=== PATIENT | female | born 1950 | race Caucasian/White ===

== ENCOUNTER 2021-04-12 16:53 | Emergency (ER) | payer MEDICARE ==
[~2021-04-12] VITALS: Ht 165.1 cm; Wt 69.0 kg
[2021-04-12 17:41] LABS: BASOPHILS ABSOLUTE AUTO 0.04 K/mm3 (0.00-0.23); BASOPHILS PERCENT AUTO 1 % (0-2); EOSINOPHILS ABSOLUTE AUTO 0.15 K/mm3 (0.00-0.68); EOSINOPHILS PERCENT AUTO 2 % (0-6); Hematocrit 42.1 % (33.0-51.0); Hemoglobin 13.8 g/dL (11.5-16.0); IMMATURE GRAN ABSOLUTE AUTO 0.02 K/mm3 (0.00-0.10); IMMATURE GRAN PERCENT AUTO 0 % (0-1); LYMPHOCYTES ABSOLUTE AUTO 1.31 K/mm3 (0.84-5.20); LYMPHOCYTES PERCENT AUTO 17 % (21-46); MONOCYTES ABSOLUTE AUTO 0.64 K/mm3 (0.16-1.47); MONOCYTES PERCENT AUTO 8 % (4-13); Mean Corpuscular HGB 31.5 pg (26.0-34.0); Mean Corpuscular HGB Conc 32.8 g/dL (31.5-36.5); Mean Corpuscular Volume 96 fL (80-100); Mean Platelet Volume 10.6 fL (9.1-12.4); NEUTROPHILS ABSOLUTE AUTO 5.78 K/mm3 (1.96-9.15); NEUTROPHILS PERCENT AUTO 73 % (41-73); Platelet Count 210 K/mm3 (150-400); RDW Coefficient Variation 13.2 % (11.7-14.2); RDW Standard Deviation 47.5 fL (35.1-46.3); Red Blood Cell Count 4.38 M/mm3 (3.80-5.20); White Blood Cell Count 7.94 K/mm3 (4.00-11.30)
[2021-04-12 18:02] LABS: Alanine Aminotransfer (ALT/SGP 20 U/L (12-78); Albumin, Blood 3.7 g/dL (3.4-5.0); Alk Phos 72 U/L (50-136); Anion Gap 3 mmol/L (6-16); Aspartate Aminotrans (AST/SGOT 28 U/L (12-37); Bilirubin, Total 0.9 mg/dL (0.1-1.0); Blood Urea Nitrogen 11 mg/dL (8-24); Bun/Creatinine Ratio 15.5 (12.0-20.0); CO2, Blood 30 mmol/L (21-32); Calcium, Blood 9.3 mg/dL (8.5-10.1); Chloride, Blood 105 mmol/L (98-108); Creatinine, Blood 0.71 mg/dL (0.40-1.00); Globulin, Blood 3.6 g/dL (2.2-4.0); Glomerular Filtration Rate >60 (60-); Glucose, Blood 107 mg/dL (70-99); Potassium, Blood 4.1 mmol/L (3.5-5.5); Sodium, Blood 138 mmol/L (136-145); Total Protein, Blood 7.3 g/dL (6.4-8.2); Troponin I <0.015 ng/mL (0.000-0.040)
[2021-04-12 18:34] LABS: Source, Urine Catheter
[2021-04-12 18:39] LABS: Appearance, Urine Clear (Clear); Bilirubin, Urine Neg (Neg); Blood, Urine Neg (Neg); Color, Urine Yellow (P-Yellow); Glucose Qualitative, Urine Neg (Neg); Ketones, Urine Neg (Neg); Leukocyte Esterase, Urine Neg (Neg); Nitrite, Urine Neg (Neg); Protein, Urine Neg (Neg); Urobilinogen, Urine NORM (Normal); pH, Urine 6.5 (5.0-8.0)
== END 2021-04-12 19:15 | disposition home or self-care (01) ==
LOC: ER 16:53
PROVIDERS: Emergency Medicine; Physician Assistant
DX: R10.9 Unspecified abdominal pain (principal); Z87.891 Personal history of nicotine dependence
CPT/HCPCS: 36415; 71046; 80053; 81003; 83690; 83880; 84484; 85025; 93005; 93010; 99284-25

== ENCOUNTER 2021-06-14 11:20 | Inpatient (IN) | payer MEDICARE ==
[~2021-06-14] VITALS: Ht 165.1 cm; Wt 66.2 kg
[2021-06-14 12:03] LABS: BASOPHILS ABSOLUTE AUTO 0.02 K/mm3 (0.00-0.23); BASOPHILS PERCENT AUTO 0 % (0-2); EOSINOPHILS ABSOLUTE AUTO 0.01 K/mm3 (0.00-0.68); EOSINOPHILS PERCENT AUTO 0 % (0-6); Hematocrit 48.1 % (33.0-51.0); Hemoglobin 15.7 g/dL (11.5-16.0); IMMATURE GRAN ABSOLUTE AUTO 0.06 K/mm3 (0.00-0.10); IMMATURE GRAN PERCENT AUTO 1 % (0-1); LYMPHOCYTES ABSOLUTE AUTO 1.25 K/mm3 (0.84-5.20); LYMPHOCYTES PERCENT AUTO 12 % (21-46); MONOCYTES PERCENT AUTO 7 % (4-13); Mean Corpuscular HGB 30.8 pg (26.0-34.0); Mean Corpuscular HGB Conc 32.6 g/dL (31.5-36.5); Mean Corpuscular Volume 95 fL (80-100); NEUTROPHILS ABSOLUTE AUTO 8.32 K/mm3 (1.96-9.15); NEUTROPHILS PERCENT AUTO 80 % (41-73); NRBC ABSOLUTE 0.02 K/mm3 (0.00-0.02); NRBC Auto 0.2 /100 WBC (0.0-0.2); Platelet Count 261 K/mm3 (150-400); RDW Coefficient Variation 14.4 % (11.7-14.2); RDW Standard Deviation 49.1 fL (35.1-46.3); Red Blood Cell Count 5.09 M/mm3 (3.80-5.20); White Blood Cell Count 10.36 K/mm3 (4.00-11.30)
[2021-06-14 12:13] LABS: Alanine Aminotransfer (ALT/SGP 25 U/L (12-78); Albumin, Blood 3.5 g/dL (3.4-5.0); Albumin/Globulin Ratio 0.8 (0.8-1.8); Alk Phos 89 U/L (50-136); Anion Gap 11 mmol/L (6-16); Aspartate Aminotrans (AST/SGOT 36 U/L (12-37); Bilirubin, Total 1.1 mg/dL (0.1-1.0); Blood Urea Nitrogen 23 mg/dL (8-24); Bun/Creatinine Ratio 27.8 (12.0-20.0); CO2, Blood 32 mmol/L (21-32); Calcium, Blood 9.9 mg/dL (8.5-10.1); Chloride, Blood 89 mmol/L (98-108); Creatinine, Blood 0.83 mg/dL (0.40-1.00); Globulin, Blood 4.4 g/dL (2.2-4.0); Glomerular Filtration Rate >60 (60-); Glucose, Blood 158 mg/dL (70-99); Potassium, Blood 3.3 mmol/L (3.5-5.5); Sodium, Blood 132 mmol/L (136-145); Total Protein, Blood 7.9 g/dL (6.4-8.2); Troponin I 0.065 ng/mL (0.000-0.040)
[2021-06-14 13:01] LABS: SARS-Cov-2 (COVID-19) PCR, MMC POSITIVE (NEGATIVE)
[2021-06-14] MEDS ORDERED: K-Dur20 MEQ PO (14:45)
[2021-06-14] MEDS ORDERED: FUROSEMIDE40 MG PO (14:45)
[2021-06-14] MEDS ORDERED: METOPROLOL SUCC25 MG PO (14:46)
[2021-06-14] MEDS ORDERED: COMBIVENT RESPIM4 G1 INH (14:46)
[2021-06-14] MEDS ORDERED: BENZ100A PO (14:47)
[2021-06-14] MEDS ORDERED: LISI5 PO (14:47)
--- NOTE | 2021-06-14 15:45 | NUR ---
RECIEVED REPORT FROM LUNA JOSHUA RN, @ [phone]. PATIENT TO TRANSFERED TO [facility].
[2021-06-14 16:50] LABS: Source, Urine Catheter
[2021-06-14 16:56] LABS: Appearance, Urine Clear (Clear); Bilirubin, Urine Neg (Neg); Blood, Urine Neg (Neg); Color, Urine Amber (P-Yellow); Glucose Qualitative, Urine Neg (Neg); Ketones, Urine 1+ (Neg); Leukocyte Esterase, Urine Neg (Neg); Nitrite, Urine Neg (Neg); Protein, Urine 3+ (Neg); Urobilinogen, Urine NORM (Normal)
[2021-06-14 17:07] LABS: Bacteria Many /hpf; Calcium Oxalate Crystals Mod /hpf; Red Blood Cells, Urine 0-2 /hpf (0-2); Squamous Epithelial Cells Rare /hpf (Few); White Blood Cells, Urine 0-2 /hpf (0-5)
--- NOTE | 2021-06-14 18:10 | NUR ---
PATIENT ARRIVED TO ROOM 308 AND WAS ASSISTED BY ONE STAFF MEMBER FOR PIVOT TRANSFER TO HOSPITAL BED. PATIENT DYSPNIC WITH EXERTION. HR ELEVATED AND NOTED TO BE ELEVATED SINCE ADMIT TO THE ER. ALERT AND ORIENTED WITH MUCH NOTED ANXIETY. JIMENEZ CATH PLACED PER ORDERS FOR STRICT I&O. SOME REDNESS AND SHEARING NOTED TO BUTTOCKS. PATIENT ADMINISTERED IV LOVENOX WITH URINE OUTPUT NOTED AND U/A SENT TO LAB PER PROTOCOL.
--- NOTE | 2021-06-14 21:45 | NUR ---
WAS NOTIFIED FROM [facility] THAT PATIENT WAS AFIB RVR HR 145. PATIENT COMPLAINED OF MILD CHEST PAIN. NOTIFIED INTERVENTIONAL RADIOLOGY RN MD, ORDERS RECEIVED. WILL TREAT PATIENT ORDERED PER NOV. PT APPEARED ANXIOUS, NO S/S OF DISTRESS NOTED. CURRENTLY ON 7L NC. NO OTHER NEEDS REPORTED AT THIS TIME. BED IN LOW POSITION AND CALL LIGHT WITHIN REACH.
--- NOTE | 2021-06-15 01:07 | NUR ---
PATIENTS HR IS SUSTAINING @140, PER CIRCLE SAW OPERATOR PT STILL RUNNING AFIB. NOTIFIED CHARGE HISTOTECHNOLOGIST MD OF INCREASING HR, NEW ORDERS RECEIVED TO TRANSFER PATIENT TO PCU AND BE STARTED ON A CARDIZEM DRIP. PATIENT IS CURRENTLY ASYMPTOMATIC AND DENIES CP. AWAITING A ROOM ASSIGNMENT, BATTERY VENT PLUG INSERTER AWARE.
--- NOTE | 2021-06-15 01:30 | NUR ---
CALLED AND GAVE REPORT TO RECEIVING RN, PT WILL BE MOVED TO PCU RM [id number].
[2021-06-15 04:42] LABS: BASOPHILS ABSOLUTE AUTO 0.01 K/mm3 (0.00-0.23); BASOPHILS PERCENT AUTO 0 % (0-2); EOSINOPHILS PERCENT AUTO 0 % (0-6); Hematocrit 46.3 % (33.0-51.0); Hemoglobin 15.1 g/dL (11.5-16.0); IMMATURE GRAN ABSOLUTE AUTO 0.04 K/mm3 (0.00-0.10); IMMATURE GRAN PERCENT AUTO 1 % (0-1); LYMPHOCYTES ABSOLUTE AUTO 0.46 K/mm3 (0.84-5.20); LYMPHOCYTES PERCENT AUTO 7 % (21-46); MONOCYTES ABSOLUTE AUTO 0.08 K/mm3 (0.16-1.47); MONOCYTES PERCENT AUTO 1 % (4-13); Mean Corpuscular HGB 30.9 pg (26.0-34.0); Mean Corpuscular HGB Conc 32.6 g/dL (31.5-36.5); Mean Corpuscular Volume 95 fL (80-100); Mean Platelet Volume 11.1 fL (9.1-12.4); NEUTROPHILS ABSOLUTE AUTO 6.45 K/mm3 (1.96-9.15); NEUTROPHILS PERCENT AUTO 92 % (41-73); NRBC ABSOLUTE 0.02 K/mm3 (0.00-0.02); NRBC Auto 0.3 /100 WBC (0.0-0.2); Platelet Count 212 K/mm3 (150-400); RDW Coefficient Variation 14.3 % (11.7-14.2); RDW Standard Deviation 49.1 fL (35.1-46.3); Red Blood Cell Count 4.89 M/mm3 (3.80-5.20); White Blood Cell Count 7.04 K/mm3 (4.00-11.30)
[2021-06-15 05:13] LABS: Alanine Aminotransfer (ALT/SGP 25 U/L (12-78); Albumin, Blood 3.2 g/dL (3.4-5.0); Albumin/Globulin Ratio 0.7 (0.8-1.8); Alk Phos 87 U/L (50-136); Anion Gap 9 mmol/L (6-16); Aspartate Aminotrans (AST/SGOT 29 U/L (12-37); Bilirubin, Total 1.1 mg/dL (0.1-1.0); Blood Urea Nitrogen 24 mg/dL (8-24); Bun/Creatinine Ratio 28.5 (12.0-20.0); CO2, Blood 31 mmol/L (21-32); Calcium, Blood 9.5 mg/dL (8.5-10.1); Chloride, Blood 89 mmol/L (98-108); Creatinine, Blood 0.84 mg/dL (0.40-1.00); Globulin, Blood 4.3 g/dL (2.2-4.0); Glomerular Filtration Rate >60 (60-); Glucose, Blood 215 mg/dL (70-99); Potassium, Blood 3.7 mmol/L (3.5-5.5); Sodium, Blood 129 mmol/L (136-145); Total Protein, Blood 7.5 g/dL (6.4-8.2); Troponin I 0.048 ng/mL (0.000-0.040)
--- NOTE | 2021-06-15 06:26 | NUR ---
SHIFT SUMMARY PATIENT IS RESTING COMFORTABLY IN BED. BED IS IN LOW POSITION. CALL LIGHT IS IN REACH. PATIENT WAS TRANSFERED TO THE FLOOR MID SHIFT TO BE STARTED ON A CARDIZEM DRIP FOR AFIB RVR. BLOOD PRESSURES HAVE BEEN STABLE. PATIENT COMPLAINED OF PAIN. PAIN MEDICATION WAS GIVEN SEE EMAR. SHE COMPLAINED ABOUT BEING UNCOMFORTABLE REPOSITIONED MULTIPLE TIMES BUT STILL STATES SHE IS NOT COMFORTABLE. PATIENT IS ON 3L NC SATURATING >95 %. PATIENT IS DOING WELL ON THE CARDIZEM DRIP RUNNING AT 5 MG/HR (5 ML/HR). WILL CONTINUE TO MONITOR. REPORT WILL BE GIVEN TO DAY SHIFT RN.
--- NOTE | 2021-06-15 13:48 | NUR ---
PATIENT ALERT AND ORIENTED X3. VERY SOFT SPOKEN. STATES SHE IS FEELING "TIRED AND LOOPY" THIS AM. ATTRIBUTING IT TO HER LACK OF SLEEP LAST NIGHT. ABLE TO ANSWER ALL ORIENTED QUESTIONS. CONFUSED ON WHERE SHE WAS AT IN HOSPITAL. REASSURED PATIENT OF PCU STATUS. PERRLA. DENIES NUMBNESS/TINGLING. ABLE TO MOVE ALL EXTREMITITES. GENERALIZED WEAKNESS. PT IN TO SEE PATIENT THIS AM. ONE PERSON ASSIST TO BSC. Q2 TURNING. ON 3-4L O2 VIA NASAL CANNULA SATING MN-HIGH 90'S AT REST. WITH MOVEMENT AT TIMES DESATS TO HIGH 80'S. ABLE TO RECOVER. WEARS 3-4L O2 AT BASELINE. TELE SHOWING AFLUTTER. UPON SHIFT START PATIENT HR 70-80'S. CARDIZEM DISCONTINUED PER DR. Cerda. CURRENTLY PATIENT STILL IN AFLUTTER AND HR AVERAGING 80-100. DENIES CHEST PAIN/PRESSURE. SLIGHTLY HYPOTENSIVE, DR. Cerda CALLED AND AT THIS TIME ORDERS TO CONTINUE TO MONITOR. PATIENT STATES SHE IS SLIGHTLY DIZZY WHEN MOVING. BOWEL TONES PRESENT. NAUSEA REPORTED THIS AM, ZOFRAN GIVEN PER EMAR. EATING SMALL AMOUNTS, SPEECH THERAPY IN TO SEE PATIENT AND NEW ORDERS PLACED. USING BSC FOR BOWEL MOVEMENTS, ATTEMPTED TO HAVE BOWEL MOVMENT THIS AM. STOOL SOFTNERS ON BOARD. JIMENEZ CATH IN PLACE DRAINING CLEAR/YELLOW URINE TO GRAVITY. BILATERAL LOWER EXTREMITY EDEMA. OVERALL FRAGILE PALE SKIN. REDNESS TO COCCYX, MEPILEX IN PLACE. PATIENT COMPLAINS OF BACK PAIN. MEDICATED PER EMAR AND HEATING PAD IN PLACE. REPORTS NOT BEING COMFORTABLE WITH STAFF TURNING. Q2 TURNING AND NEEDED. STRICT I&O MONITORING. CALL LIGHT IN REACH. WILL CONTINUE TO MONITOR CLOSELY.
--- NOTE | 2021-06-15 18:35 | NUR ---
SHIFT SUMMARY: PATIENT HYPOTENSIVE. DR MILLER AND DR. Zaida WILSON. NEW ORDERS PLACED FOR FLUID BOLUS, ECHO, TROPONIN LAB DRAW AND BP MONITORING. TOTAL OF 750 ML INFUSED AND ADDITIONAL 500ML INFUSING AT THIS TIME. BOLUS INFUSED. TROPOIN RESULTS CALLED INTO DR. MILLER. ECHO DONE, RESULTS PENDING. PATIENT COMPLAINED OF SLIGHT CHEST PRESSURE AND PAIN. EKG DONE, AND IN CHART. DR. MILLER AWARE. PATIENT NOW DENIES CHEST PAIN AT THIS TIME. DENIES FEELING DIZZY. COMPLAINS OF SOME CONSTIPATION. STOOL SOFTNERS ON BOARD THIS AM AND POWER PUDDING WITH MEALS. EATING SMALL AMOUNTS WITH MEALS. JIMENEZ CATH IN PLACE DRAINING CLEAR/YELLOW URINE. TELE SHOWING AFLUTTER WITH HR AVERAGING 80-100. WHEN MOVING AROUND AND EXERTING SELF HR CAN JUMP UP TO 130-140. REMAINS ON 4 L O2 SATING MID-HIGH 90'S. WILL DESAT TO HIGH 80'S WITH MOVEMENT OR EXCESSIVE TALKING. BOWEL TONES REMAIN PRESENT. NO BM THIS DAY SHIFT. UP 1-2 PERSON ASSIST TO BSC. COMPLAINS OF CHRONIC BACK PAIN, MEDICATED ONCE PER PRN MEDS THIS AM. HEATING PAD REMAINS IN PLACE. CALL LIGHT IN REACH. WILL CONTINUE TO MONITOR AND REPORT OFF TO ONCOMING RN.
--- NOTE | 2021-06-15 20:56 | NUR ---
CALLED DR ELIZABETH ABOUT THE PATIENT'S SYSTOLIC BLOOD PRESSURE IN THE 70s AND 80s. DR ELIZABETH WAS INFORMED THE PATIENT ALREADY HAD TWO 500 ML BOLUSES AND 250 ML LR BOLUS. ANOTHER 500 ML BOLUS WAS ORDERED. PATIENT IS ASYMPTOMATIC. WILL CONTINUE TO MONITOR.
[2021-06-16 03:32] LABS: BASOPHILS PERCENT AUTO 0 % (0-2); EOSINOPHILS PERCENT AUTO 0 % (0-6); Hematocrit 46.5 % (33.0-51.0); Hemoglobin 14.6 g/dL (11.5-16.0); IMMATURE GRAN ABSOLUTE AUTO 0.06 K/mm3 (0.00-0.10); IMMATURE GRAN PERCENT AUTO 1 % (0-1); LYMPHOCYTES ABSOLUTE AUTO 0.78 K/mm3 (0.84-5.20); LYMPHOCYTES PERCENT AUTO 7 % (21-46); MONOCYTES ABSOLUTE AUTO 0.82 K/mm3 (0.16-1.47); MONOCYTES PERCENT AUTO 8 % (4-13); Mean Corpuscular HGB 30.5 pg (26.0-34.0); Mean Corpuscular HGB Conc 31.4 g/dL (31.5-36.5); Mean Corpuscular Volume 97 fL (80-100); Mean Platelet Volume 10.8 fL (9.1-12.4); NEUTROPHILS ABSOLUTE AUTO 8.84 K/mm3 (1.96-9.15); NEUTROPHILS PERCENT AUTO 84 % (41-73); NRBC ABSOLUTE 0.06 K/mm3 (0.00-0.02); NRBC Auto 0.6 /100 WBC (0.0-0.2); Platelet Count 241 K/mm3 (150-400); RDW Coefficient Variation 14.5 % (11.7-14.2); RDW Standard Deviation 51.2 fL (35.1-46.3); Red Blood Cell Count 4.78 M/mm3 (3.80-5.20)
[2021-06-16 03:47] LABS: Albumin, Blood 3.1 g/dL (3.4-5.0); Anion Gap 4 mmol/L (6-16); Blood Urea Nitrogen 36 mg/dL (8-24); Bun/Creatinine Ratio 27.7 (12.0-20.0); CO2, Blood 35 mmol/L (21-32); Calcium, Blood 8.9 mg/dL (8.5-10.1); Chloride, Blood 90 mmol/L (98-108); Glomerular Filtration Rate 40 (60-); Glucose, Blood 128 mg/dL (70-99); Phosphorus, Blood 4.2 mg/dL (2.5-4.9); Potassium, Blood 4.7 mmol/L (3.5-5.5); Sodium, Blood 129 mmol/L (136-145)
--- NOTE | 2021-06-16 06:18 | NUR ---
SHIFT SUMMARY PATIENT SLEPT WELL THRU NIGHT. BP WELL CONTROLLED ON LEVOHPED DRIP. NO ACUTE EVENTS OVERNIGHT. ASSESSMENT IS CHARTED. NO C/O PAIN. VSS. WILL CONTINUE TO MONITOR.
--- NOTE | 2021-06-16 06:30 | NUR ---
SHIFT SUMMARY PATIENT SLEPT WELL THRU NIGHT. GAVE ONE BREAK FROM BIPAP ~ 00:30, MAINTAINED SATURATION FOR ~ 5 MINUTES BEFORE DROPPING QUICKLY TO 85%, REPLACED BIPAP @ 100%, RECOVERED AFTER ABOUT 5 MINUTES. PT HAS CONTINUED TO DENY PAIN, SHORTNESS OF BREATH THRU-OUT NIGHT. BP WELL CONTROLLED ON 2 MCG/MIN OF LEVOPHED. ASSESSMENT IS CHARTED. VSS. WILL CONTINUE TO MONITOR.
--- NOTE | 2021-06-16 10:39 | NUR ---
AM NOTE... ASSUMED CARE OF PT AT 0700, PT IS A&Ox4. PT WAS ADMITTED FOR COVID-19 AND CHF EXAC. PT WAS ON LEVOPHED AT 4MCG AT THE START OF THIS SHIFT. THE PT IS IN AFLUTTER IN THE 100'S-120'S. PT DENIES ANY CHEST PAIN AT THIS TIME BUT STATES HER CHEST FEELS "TIGHT" BUT ALSO STATES SHE HAS BEEN FEELING THIS FOR "A WHILE". PT'S L/S CLEAR IN THE UPPER LOBES DIM T/O WITH FINE CRACKLES NOTED IN THE RLL. PT HAS 2+ PITTING EDEMA TO HER BLE AND 1+ TO HER BUE. BT PRESENT AND HYPOACTIVE,ABD IS SOFT AND NONTENDER TO PALP. 0900: PROVIDER AT THE BEDSIDE FOR ASSESSMENT. AT 0923 THE LEVOPHED WAS TITRATED OFF, THE PT'S BP WAS STABLE WITH MAPS >65. THE PT'S HR DURING THIS TIME WAS IN THE 130'S STILL AFLUTTER. PT CONTINUES TO BE ON 4L NC WITH O2 SATS>95%. WILL CONTINUE TO MONITOR.
[2021-06-16 12:02] LABS: Magnesium, Blood 1.9 mg/dL (1.6-2.4)
[2021-06-16 12:04] LABS: Thyroid Stimulating Hormone 1.09 uIU/mL (0.360-4.800)
--- NOTE | 2021-06-16 12:42 | NUR ---
PT UPDATE... PT WAS STARTED ON AN AMIODERONE BOLUS AND THEN DRIP, THE PT'S HR WENT FROM THE 130'S TO 80'S-100'S SHORTLY AFTER THE BOLUS WAS STARTED. THE PT'S BP CONTINUES TO BE STABLE AT THIS TIME. T/O THIS SHIFT THE PT HAS REFUSED TO TURN FROM HIGH FOWLERS TO EITHER SIDE, THE PT WAS EDUCATED ON BREAKDOWN PREVENTION, PRESSURE ULCERS AND PREVENTION, THE PT VERBALIZED HER UNDERSTANDING BUT HAS STILL REFUSED TO TURN. DURING ASSESSMENT THIS RN NOTED THE PT HAS A SILVER DOLLAR SIZED SHEAR/RED AREA ON HER COCCYX THAT IS NON-BLANCHABLE AT THIS TIME. MEPILEX IS IN PLACE. PT WAS TOLD ABOUT THIS RED AREA AND ENCOURAGED TO TURN BUT CONTINUES TO REFUSE AT THIS TIME. WILL CONTINUE TO MONITOR.
--- NOTE | 2021-06-16 19:00 | NUR ---
ASSUME CARE NOTE: PATIENT AWAKE, A&OX4, & SITTING UP COMFORTABLY IN BED. LEVO 6MCG/MIN & AMIO 0.5MG/HR INFUSING. PATIENT HAS COMPLAINTS OF BACK PAIN AND REQUESTS PRN HYDROCODONE. CURRENTLY WEARING 3L NC. HR & BP STABLE. EXPRESSES MILD ANXIETY. JIMENEZ DRAINING CLEAR YELLOW URINE TO GRAVITY. WOUND ON BOTTOM HAS MEPILEX THAT IS CLEAN, DRY, & INTACT. SEE SHIFT ASSESSMENT FOR DETAILS.
[2021-06-17 03:38] LABS: BASOPHILS ABSOLUTE AUTO 0.01 K/mm3 (0.00-0.23); BASOPHILS PERCENT AUTO 0 % (0-2); EOSINOPHILS ABSOLUTE AUTO 0.01 K/mm3 (0.00-0.68); EOSINOPHILS PERCENT AUTO 0 % (0-6); Hematocrit 48.2 % (33.0-51.0); Hemoglobin 15.5 g/dL (11.5-16.0); IMMATURE GRAN ABSOLUTE AUTO 0.07 K/mm3 (0.00-0.10); IMMATURE GRAN PERCENT AUTO 1 % (0-1); LYMPHOCYTES ABSOLUTE AUTO 0.73 K/mm3 (0.84-5.20); LYMPHOCYTES PERCENT AUTO 6 % (21-46); MONOCYTES ABSOLUTE AUTO 0.76 K/mm3 (0.16-1.47); MONOCYTES PERCENT AUTO 6 % (4-13); Mean Corpuscular HGB 30.5 pg (26.0-34.0); Mean Corpuscular HGB Conc 32.2 g/dL (31.5-36.5); Mean Corpuscular Volume 95 fL (80-100); Mean Platelet Volume 10.8 fL (9.1-12.4); NEUTROPHILS ABSOLUTE AUTO 10.73 K/mm3 (1.96-9.15); NEUTROPHILS PERCENT AUTO 87 % (41-73); NRBC ABSOLUTE 0.09 K/mm3 (0.00-0.02); NRBC Auto 0.7 /100 WBC (0.0-0.2); Platelet Count 257 K/mm3 (150-400); RDW Coefficient Variation 14.1 % (11.7-14.2); RDW Standard Deviation 48.6 fL (35.1-46.3); Red Blood Cell Count 5.08 M/mm3 (3.80-5.20); White Blood Cell Count 12.31 K/mm3 (4.00-11.30)
[2021-06-17 04:09] LABS: Albumin, Blood 3.2 g/dL (3.4-5.0); Anion Gap 7 mmol/L (6-16); Blood Urea Nitrogen 39 mg/dL (8-24); Bun/Creatinine Ratio 34.5 (12.0-20.0); CO2, Blood 31 mmol/L (21-32); Calcium, Blood 9.3 mg/dL (8.5-10.1); Chloride, Blood 86 mmol/L (98-108); Creatinine, Blood 1.13 mg/dL (0.40-1.00); Glomerular Filtration Rate 47 (60-); Glucose, Blood 167 mg/dL (70-99); Phosphorus, Blood 3.7 mg/dL (2.5-4.9); Potassium, Blood 4.8 mmol/L (3.5-5.5); Sodium, Blood 124 mmol/L (136-145)
--- NOTE | 2021-06-17 06:28 | NUR ---
END OF SHIFT SUMMARY: PATIENT RESTING IN BED IN SITTING POSITION. CURRENTLY SATING 95% ON 3L NC. HR AND BP STABLE AND CONTINUES TO APPEAR AFLUTTER ON THE MONITOR. AMIO 0.5MG/HR & LEVO 5MCG/MIN INFUSING. PATIENT ALERT BUT STATES SHE IS DISORIENTED TO TIME & HAVING HALLUCINATIONS, ALTHOUGH SHE IS AWARE IT'S NOT REAL, & IS EASILY RE-ORIENTED. SHE DECLINES TO FULLY TURN DESPITE EDUCATION ON THE WOUND ON HER COCCYX. WILL REPORT TO ONCOMING RN WHEN AVAILABLE.
--- NOTE | 2021-06-17 09:22 | NUR ---
AM NOTE... ASSUMED CARE OF PT AT 0700, PT IS A&Ox4. PT IS ON 2-3 L NC WITH O2 SATS >90% L/S ARE NOTED TO HAVE FINE CRACKLES IN THE BILAT LOWER LOBES AND RIGHT MID LOBE, UPPER LOBES ARE CLEAR/DIM. PT DENIES ANY COUGH OR SUPUTUM PRODUCTION. PT CONTINUES TO BE ON THE LEVOPHED RUNNING AT 5MCG/MIN THIS WAS TITRATED DOWN TO 4MCG THEN 3MCG/MIN SINCE THE START OF THIS SHIFT. BT PRESENT AND HYPOACTIVE, ABD IS SOFT AND NONTENDER TO PALP. PT'S JIMENEZ IS PATENT AND DRAINING CLEAR DARK YELLOW URINE TO GRAVITY. PT CONTINUES TO REFUSE TO TURN FROM THE ESTRADA'S POSITION OFF HER COCCYX THAT HAS A STAGE 1 PRESSURE ULCER. PT WAS EDUCATED ON PRESSURE ULCER PREVENTION, SKIN CARE AND THE IMPORTANCE OF RESPOSITIONING AGAIN BY THIS RN, PT VERBALIZED HER UNDERSTANDING BUT STILL REFUSED TO RESPOSTION. PT HAS BEEN EXHIBITING MANIPULATIVE BEHAVIOURS TOWARDS STAFF IN REGARDS TO THINGS SHE DOES NOT WANT TO DO SUCH REPOSITIONING OR ADLs. FOR EXAMPLE THE PT WAS EATING HER BREAKFAST WHILE THIS RN WAS SCANNING HER MEDICATIONS, THIS RN INFORMED THE PT WHAT MEDICATIONS WERE ORDERED AND WHAT THEY WERE FOR, THIS RN THEN ASKED THE PT IF SHE WANTED TO TAKE THESE MEDICATIONS, THE PT VERBALIZED "YES" WHEN THIS RN PUT THE MED CUP ON THE PT'S OVER-BED TABLE THE PT SUDDENLY SAID "OH NO IM FEELING VERY NAUSEOUS!" WHEN THIS RN PULLED THE PT'S MEAL TRAY AWAY AND GAVE HER AN EMISIS BAG THE PT HAD ASKED "WHY DID YOU TAKE MY COFFEE AND FOOD?" THIS RN EXPLAINED IF THE PT WAS FEELING NAUSEOUS THEN SHE SHOULD NOT BE EATING OR DRINKING ANYTHING AT THIS TIME THAT COULD INCREASE THE CHANCES OF ASPIRATION IF SHE DID VOMIT. THE PT THEN QUICKLY SAID "WELL I AM NOT FEELING THAT WAY ANYMORE I WANT MY COFFEE AND FOOD BACK." WILL CONTINUE TO MONITOR.
--- NOTE | 2021-06-17 18:10 | NUR ---
Pt was received to PCU 4 and pt is very talkative, asking questions and giving lots of information about her life, her experiences and recent illnesses. She told me that she did not have Covid as she tested negative before this admission. I explained that she did have a positive covid test this admission, and while she did not express surprise she did not seem to think it was possible since she had tested negative before. STates that her ILD was probably the culprit since it gives the same symptoms as covid. Seems to have a difficult time processing the current illness details. Also states confusion at times when given simple directions. Otherwise, she is alert, oriented and directable.
--- NOTE | 2021-06-17 18:30 | NUR ---
Pt's friend called U desk to say that pt cannot reach her phone, she spilled her food everywhere; however when I entered there was no food except an organized partly eaten tray. She said she had spilled food all over herself and her wallet, but no food was anywhere else. States she could not find her call light; it was not within her reach. She was given the call light and demonstrated its use. Assisted back to bed, 2 per assist. Hypoxia with the activity to 77 %, O2 increased to 6 l/min from 3 l/min for recovery and pt instructed to use pursed lip breathing, which she did. O2 decreased after recovery to 94%. Now on 4 l/min delivery.
[2021-06-17 23:18] LABS: Digoxin (Lanoxin) 1.35 ug/mL (0.80-2.00)
[2021-06-18 04:14] LABS: BASOPHILS ABSOLUTE AUTO 0.01 K/mm3 (0.00-0.23); BASOPHILS PERCENT AUTO 0 % (0-2); EOSINOPHILS PERCENT AUTO 0 % (0-6); Hematocrit 46.9 % (33.0-51.0); Hemoglobin 15.5 g/dL (11.5-16.0); IMMATURE GRAN ABSOLUTE AUTO 0.07 K/mm3 (0.00-0.10); IMMATURE GRAN PERCENT AUTO 1 % (0-1); LYMPHOCYTES ABSOLUTE AUTO 0.65 K/mm3 (0.84-5.20); LYMPHOCYTES PERCENT AUTO 8 % (21-46); MONOCYTES ABSOLUTE AUTO 0.59 K/mm3 (0.16-1.47); MONOCYTES PERCENT AUTO 7 % (4-13); Mean Corpuscular HGB 30.8 pg (26.0-34.0); Mean Corpuscular Volume 93 fL (80-100); Mean Platelet Volume 10.9 fL (9.1-12.4); NEUTROPHILS ABSOLUTE AUTO 6.87 K/mm3 (1.96-9.15); NEUTROPHILS PERCENT AUTO 84 % (41-73); NRBC ABSOLUTE 0.08 K/mm3 (0.00-0.02); Platelet Count 207 K/mm3 (150-400); RDW Coefficient Variation 14.5 % (11.7-14.2); RDW Standard Deviation 48.4 fL (35.1-46.3); Red Blood Cell Count 5.03 M/mm3 (3.80-5.20); White Blood Cell Count 8.19 K/mm3 (4.00-11.30)
[2021-06-18 04:48] LABS: Albumin, Blood 3.1 g/dL (3.4-5.0); Anion Gap 6 mmol/L (6-16); Blood Urea Nitrogen 30 mg/dL (8-24); Bun/Creatinine Ratio 41.6 (12.0-20.0); CO2, Blood 30 mmol/L (21-32); Calcium, Blood 9.4 mg/dL (8.5-10.1); Chloride, Blood 88 mmol/L (98-108); Creatinine, Blood 0.72 mg/dL (0.40-1.00); Glomerular Filtration Rate >60 (60-); Glucose, Blood 121 mg/dL (70-99); Phosphorus, Blood 2.3 mg/dL (2.5-4.9); Potassium, Blood 5.3 mmol/L (3.5-5.5); Sodium, Blood 124 mmol/L (136-145)
--- NOTE | 2021-06-18 07:40 | NUR ---
SHIFT SUMMARY PATIENT WAS RESTING COMFORTABLY IN BED. BED IS IN LOW POSITION. BED EXIT ALARM IS ON. CALL LIGHT IS IN REACH. PATIENT COMPLAINED OF PAIN LAST NIGHT SEE EMAR FOR PAIN INTERVENTION. NO ACITE EVENT DURING THE NIGHT. VITALS WERE STABLE. PATIENT HAD A LOT OF QUESTIONS ABOUT HER HEART RATE AND BLOOD PRESSURE AND RN EXPLAINED TO THE PATIENT THE MEDICATION SHE WAS TAKING AND WHAT THE WERE DOING. PATIENT STATED SHE FELT BETTER WITH KNOWING THE INFORMATION. PATIENT IS FORGETFUL SO SHE WOULD ASK THE SAME QUESTION OVER AND OVER. ON 3L NC SATURATING >95%. WILL CONTINUE TO MONITOR. REPORT GIVEN TO DAY SHIFT RN.
[2021-06-18 12:54] LABS: Digoxin (Lanoxin) 1.36 ug/mL (0.80-2.00)
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
[2021-06-19 04:06] LABS: BASOPHILS ABSOLUTE AUTO 0.01 K/mm3 (0.00-0.23); BASOPHILS PERCENT AUTO 0 % (0-2); EOSINOPHILS PERCENT AUTO 0 % (0-6); Hematocrit 50.5 % (33.0-51.0); Hemoglobin 16.3 g/dL (11.5-16.0); IMMATURE GRAN ABSOLUTE AUTO 0.06 K/mm3 (0.00-0.10); IMMATURE GRAN PERCENT AUTO 1 % (0-1); LYMPHOCYTES ABSOLUTE AUTO 0.51 K/mm3 (0.84-5.20); LYMPHOCYTES PERCENT AUTO 6 % (21-46); MONOCYTES ABSOLUTE AUTO 0.63 K/mm3 (0.16-1.47); MONOCYTES PERCENT AUTO 7 % (4-13); Mean Corpuscular HGB 30.5 pg (26.0-34.0); Mean Corpuscular HGB Conc 32.3 g/dL (31.5-36.5); Mean Corpuscular Volume 94 fL (80-100); NEUTROPHILS ABSOLUTE AUTO 7.79 K/mm3 (1.96-9.15); NEUTROPHILS PERCENT AUTO 87 % (41-73); NRBC ABSOLUTE 0.04 K/mm3 (0.00-0.02); NRBC Auto 0.4 /100 WBC (0.0-0.2); RDW Coefficient Variation 14.4 % (11.7-14.2); RDW Standard Deviation 48.8 fL (35.1-46.3); Red Blood Cell Count 5.35 M/mm3 (3.80-5.20)
[2021-06-19 04:08] LABS: Mean Platelet Volume 11.2 fL (9.1-12.4)
[2021-06-19 04:27] LABS: Albumin, Blood 2.8 g/dL (3.4-5.0); Anion Gap 6 mmol/L (6-16); Blood Urea Nitrogen 26 mg/dL (8-24); Bun/Creatinine Ratio 32.2 (12.0-20.0); CO2, Blood 30 mmol/L (21-32); Calcium, Blood 9.1 mg/dL (8.5-10.1); Chloride, Blood 91 mmol/L (98-108); Creatinine, Blood 0.81 mg/dL (0.40-1.00); Glomerular Filtration Rate >60 (60-); Glucose, Blood 126 mg/dL (70-99); Phosphorus, Blood 2.3 mg/dL (2.5-4.9); Potassium, Blood 5.5 mmol/L (3.5-5.5); Sodium, Blood 127 mmol/L (136-145)
--- NOTE | 2021-06-19 07:10 | NUR ---
SHIFT SUMMARY PATIENT IS RESTING IN BED COMFORTABLY. BED IS IN LOW POSTIION. CALL LIGHT IS IN REACH. PATIENT COMPLAINED OF BACK PAIN BUT DID NOT ASK FOR PAIN MEDICATION. PATIENT STILL ASKED QUESTIONS ABOUT HER PLAN OF CARE AND HER HEART RATE AND OXUYGEN SATURATION. RN EXPLAINED EVERYTHING SHE COULD TO THE PATIENT. PATIENT WOULD STATE SHE UNDERSTANDS THEN ASK THE SAME QUESTIONS AGAIN. PATIENT IS ON 3L NC OF O2 SATURATING ABOVE 95%. PATIENT'S VITALS WERE STABLE. WHEN SHE SLEPT A LITTLE DURING THE NIGHT HER HEART RATE WENT DOWN TO THE 70s/80s. WHEN SHE WAS WOKEN UP HER HEART RATE WENT BACK UP TO 120s STILL AFLUTTER. WILL CONTINUE TO MONITOR. REPORT GIVEN TO DAY PACHECO ROA.
--- NOTE | 2021-06-19 12:59 | NUR ---
ASSUMED CARE OF PATIENT UPON HER ARRIVAL FROM PCU AT 1245. PLACED ON 4 L/MIN NC. LUNG SOUNDS COARSE THROUGHOUT, MORE DIM IN RLL. SEVERE KYPHOSIS. TELEMETRY BOX VERIFIED WITH CERTIFICATION ENGINEER: A FLUTTER 120'S DURING TRANSFER FROM W/C TO BED. 1+ PITTING EDEMA IN BLE FROM FEET TO UPPER CALVES. ENHANCED ISOLATION FOR DX OF COVID 19. DECLINED LUNCH TRAY, GAVE ICE WATER.
--- NOTE | 2021-06-19 15:51 | NUR ---
VITAL SIGNS DOCUMENTED AT 1524 SHOW HR 57. PATIENT IS IN A FLUTTER WITH HR 90-100 PER TELEMETRY.
[2021-06-19 16:01] LABS: Digoxin (Lanoxin) 1.35 ug/mL (0.80-2.00)
--- NOTE | 2021-06-19 19:54 | NUR ---
SHIFT SUMMARY: NO EVENTS. TELEMETRY SHOWS A FLUTTER, RATE 90-100. DENIED CHEST PAIN OR DISCOMFORT. DID C/O BACK PAIN, BUT DECLINED OFFERED PAIN MEDICATION, HEATING PAD APPLIED. INTERMITTENT ANXIETY. O2 @ 4 L/MIN NC, LUNG SOUNDS ARE COARSE THROUGHOUT. JIMENEZ DRAINING ADEQUATE URINE. DOES NOT CARE FOR HOSPITAL FOOD, ISN'T EATING MUCH, BUT WILL DRINK APPLE FLAVOR ENSURE CLEAR IF OFFERED.
[2021-06-20 05:57] LABS: BASOPHILS ABSOLUTE AUTO 0.01 K/mm3 (0.00-0.23); BASOPHILS PERCENT AUTO 0 % (0-2); EOSINOPHILS PERCENT AUTO 0 % (0-6); Hematocrit 48.8 % (33.0-51.0); Hemoglobin 15.7 g/dL (11.5-16.0); IMMATURE GRAN ABSOLUTE AUTO 0.06 K/mm3 (0.00-0.10); IMMATURE GRAN PERCENT AUTO 1 % (0-1); LYMPHOCYTES ABSOLUTE AUTO 0.59 K/mm3 (0.84-5.20); LYMPHOCYTES PERCENT AUTO 6 % (21-46); MONOCYTES ABSOLUTE AUTO 0.82 K/mm3 (0.16-1.47); MONOCYTES PERCENT AUTO 8 % (4-13); Mean Corpuscular HGB 30.4 pg (26.0-34.0); Mean Corpuscular HGB Conc 32.2 g/dL (31.5-36.5); Mean Corpuscular Volume 95 fL (80-100); Mean Platelet Volume 10.4 fL (9.1-12.4); NEUTROPHILS ABSOLUTE AUTO 9.18 K/mm3 (1.96-9.15); NEUTROPHILS PERCENT AUTO 86 % (41-73); NRBC ABSOLUTE 0.04 K/mm3 (0.00-0.02); NRBC Auto 0.4 /100 WBC (0.0-0.2); Platelet Count 229 K/mm3 (150-400); RDW Coefficient Variation 14.5 % (11.7-14.2); RDW Standard Deviation 50.2 fL (35.1-46.3); Red Blood Cell Count 5.16 M/mm3 (3.80-5.20); White Blood Cell Count 10.66 K/mm3 (4.00-11.30)
[2021-06-20 06:13] LABS: Anion Gap 3 mmol/L (6-16); Blood Urea Nitrogen 26 mg/dL (8-24); Bun/Creatinine Ratio 34.2 (12.0-20.0); CO2, Blood 35 mmol/L (21-32); Calcium, Blood 9.4 mg/dL (8.5-10.1); Chloride, Blood 93 mmol/L (98-108); Creatinine, Blood 0.76 mg/dL (0.40-1.00); Glomerular Filtration Rate >60 (60-); Glucose, Blood 132 mg/dL (70-99); Phosphorus, Blood 2.7 mg/dL (2.5-4.9); Potassium, Blood 5.1 mmol/L (3.5-5.5); Sodium, Blood 131 mmol/L (136-145)
--- NOTE | 2021-06-20 11:45 | NUR ---
JAQUELINE kimble, Anxiety, and order for Home O2 eval Patient anxious today, asking staff to do everything for her. Patient wanting staff to remain in room with patient d/t anxiety. Asked staff to shuffle drinks around, take untouched drinks away, refresh untouched coffee, put phone on the bed and then back on table, put gasoline truck crane operator in bag and then take it out again. Discussed with Dr. Evaristo BENNETT anxiety level. Also discussed about continuation of lamin upon d/c to [facility] this afternoon. Received V.O. to d/c lamin and obtain Home O2 Eval, orders updated. Awaiting new orders for anxiety.
--- NOTE | 2021-06-20 12:08 | NUR ---
HOME O2 EVAL PATIENT COMPLETED O2 EVAL WITH THIS RN. AT REST ON 3L O2, PATIENT SATS 95%. WITH ACTIVITY, SATS DOWN TO 88%. INCREASED O2 TO 5L, SATS @ 90% AND QUICKLY MAINTAINED AT 95%. PER PATIENT STATEMENT, THIS IS HER BASELINE.
[2021-06-20] MEDS ORDERED: LANOXIN125 MCG PO (13:03)
[2021-06-20] MEDS ORDERED: ACET325 PO (13:03)
[2021-06-20] MEDS ORDERED: DOCU100 PO (13:04)
[2021-06-20] MEDS ORDERED: [UNRECOGNIZED DRUG - CODE] MT (13:05)
[2021-06-20] MEDS ORDERED: XARELTO20 MG PO (13:05)
--- NOTE | 2021-06-20 13:11 | NUR ---
Discharge Summary A/Ox3, pleasanty and very anxious. Home O2 eval completed, patient does have poor perfusion at times. [facility] d/c, voided after this was d/c'd. 1p to B[facility]. Discharging to [facility]. Report called and given to receiving nurse Kirstin. Meds/dc order faxed by Charge Josy. Hard script for anxiety med placed in yellow packet and will be given to lead driver upon d/c. Josy arranged transport. Will return possessions at d/c.
[2021-06-20] MEDS ORDERED: ALPR.25 PO (13:13)
== END 2021-06-20 13:52 | DRG 871 ==
LOC: ER 11:20 → MEDS 11:21 → EDBEDREQ 15:18 → MEDS 16:05 → SURS 06-15 01:46 → ICUW 06-15 22:30 → PCU 06-17 16:44 → MEDS 06-19 12:43
PROVIDERS: Emergency Medicine; Family Medicine; Student in an Organized Health Care Education/Training Program; ADMIT Internal Medicine
PROC: 3E0DX3Z Introduction of Anti-inflammatory into Mouth and Pharynx, External Approach (ICD-10-PCS; 2021-06-14)
PROC: 8E0ZXY6 Isolation (ICD-10-PCS; 2021-06-14)
PROC: XW033E5 Introduction of Remdesivir Anti-infective into Peripheral Vein, Percutaneous Approach, New Technology Group 5 (ICD-10-PCS; principal; 2021-06-15)
PROC: 3E033XZ Introduction of Vasopressor into Peripheral Vein, Percutaneous Approach (ICD-10-PCS; 2021-06-15)
DX: A41.89 Other specified sepsis (principal); U07.1 COVID-19; J12.82 Pneumonia due to coronavirus disease 2019; J96.21 Acute and chronic respiratory failure with hypoxia; I50.33 Acute on chronic diastolic (congestive) heart failure; I48.92 Unspecified atrial flutter; N17.9 Acute kidney failure, unspecified; T88.6XXA Anaphylactic reaction due to adverse effect of correct drug or medicament properly administered, initial encounter; E87.1 Hypo-osmolality and hyponatremia; Z96.643 Presence of artificial hip joint, bilateral; I27.23 Pulmonary hypertension due to lung diseases and hypoxia; L89.151 Pressure ulcer of sacral region, stage 1; I48.91 Unspecified atrial fibrillation; T50.2X5A Adverse effect of carbonic-anhydrase inhibitors, benzothiadiazides and other diuretics, initial encounter; J84.112 Idiopathic pulmonary fibrosis; R65.20 Severe sepsis without septic shock; Z99.81 Dependence on supplemental oxygen; Z88.4 Allergy status to anesthetic agent
CPT/HCPCS: 36415; 36416; 71045; 80053; 80069; 80162; 81001; 83735; 83880; 84145; 84443; 84484; 85025; 87086; 92526; 92610; 93005; 93010; 93308; 94640; 94762; 96372; 96374; 96375; 96376; 97110; 97162; 97166; 97530; 99285-25; A9270; G0378; J0282; J1650; J1940; J2060; J2405; J7040; J7060; J7120; U0004